=== PATIENT | female | born 1935 | race Caucasian/White ===

== ENCOUNTER 2016-09-05 11:06 | Inpatient (IN) ==
[2016-09-05] MEDS ORDERED: SODIUM CHLORIDE 0.9% 500 ML IV STA (11:52)
--- NOTE | 2016-09-05 11:56 | EKG Report ---
Stationary ECG Study [facility] Test Date: 09/05/2016 11:40:44 AM Pat Name: PRIYA MAE Department: Room: Gender: F Signaler: BAKARI Howell : 1935 Requested by: Manuelito Wade Order Number: [id number] Reading MD: BIENVENIDO PETER Intervals [place] Rate: 61 P: 93 [place]: 162 QRS: 60 QRSD: 76 T: 71 QT: 421 QTc: 424 Interpretive Statements SINUS RHYTHM WITH OCCASIONAL SUPRAVENTRICULAR PREMATURE COMPLEXES Electronically Signed On 09-08-16 13:46:05 CDT by BIENVENIDO PETER [email or web address]
--- NOTE | 2016-09-05 12:08 | Emergency Department Note ---
Teressa Flores Brittany, am scribing for, and in the presence of, Manuelito Drake MD 12:01. Noelle Flores Charles R, MD, personally performed the services described in this documentation, ascribed by Cecille Gannon in my presence, and it is both accurate and complete . Arrival - Arrival Chief Complaint: Arrhythmia/Palpitations Stated Complaint: DIZZINESS, WEAKNESS ED Nursing Triage Note: PT WITH ONSET OF WEAKNESS THIS AM AND COMPLAINS OF HEART FELT LIKE IT WAS RACING, DENIES CP,SOB PT ACTUALLY HAVING PERIODS OF BRADYCARDIA IN TRIAGE. HR Mode of Arrival: Wheelchair Limitations: No Limitations Source: Family Time Seen by Provider: 09/05/16 11:38 - History of Present Illness HPI Narrative: This is a 81 y/o white female, who presents to the ED with c/o dizziness which started earlier this morning. Her son reports while at home, pt started to experience dizziness. He staets he checked her BP cuffs and it was around 178/ 90. He states her pulse was 60-64. SHe has a PMHx of vertigo but it has been "years since she has had an episode". Her son reports when she stood up it made the dizziness worse. Pt denies any diarrhea, N/V or CP. Her son states, per pt, "It feels like my heart is getting away with me". Pt has no other complaints/ pain in the ED at this time. Pt has a PMHx of HTN and dementia. Pt denies a surgical Hx. Pt denies a family medical Hx. Pt denies a social Hx. Onset (ago): hour(s) (Started earlier this morning) Consistency: constant Severity: moderate Allergies/Adverse Reactions: Allergies Allergy/AdvReac Type Severity Reaction Status Date / Time furosemide [From Lasix] Allergy RASH Verified 09/05/16 11:31 Home Medications: Home Medications Medication Instructions Recorded Confirmed Type Cholecalciferol [Vitamin D3] 1,000 unit PO 0900 04/01/16 09/05/16 History Nebivolol [Bystolic] 10 mg PO 0900 04/01/16 09/05/16 History hydrALAZINE TAB [Apresoline Tab] 100 mg PO BID 04/01/16 09/05/16 History hydroCHLOROthiazide 25 mg PO 0900 04/01/16 09/05/16 History [Hydrochlorothiazide] Donepezil [Aricept] 5 mg PO BEDTIME #30 tablet 04/08/16 09/05/16 Rx Gabapentin Cap/Tab [Neurontin 100 mg PO BID@1600,2100 #60 capsule 04/08/1609/05 Rx Cap/Tab] Memantine [Namenda] 5 mg PO BID #60 tablet 04/08/16 09/05/16 Rx Review of System - Review of System 12 point system: reviewed and no additional remarkable complaints except as stated - Review of System Cardiovascular: Present: other (Tachycardia). Absent: chest pain, palpitations Gastrointestinal: Absent: nausea, vomiting, diarrhea Neurological: Present: vertigo (Dizziness) Medical,Surgical,& Family Hx - Medical History Cardio: History of: Hypertension Psychological: No history of: Behavior Problems, Violent Behavior, Psychiatric Problems Neurology: History of: Dementia HEENT: History of: Eye Problem (Macular degernation) - Social History Smoking Status: Never smoker Exam Vital Signs: Vital Signs Temperature 98.3 F 09/05/16 11:22 Pulse Rate 63 09/05/16 13:20 Respiratory Rate 16 09/05/16 13:20 Blood Pressure 170/52 09/05/16 13:20 O2 Sat by Pulse Oximetry 99 09/05/16 13:20 - General General appearance: alert, in no apparent distress - Head Head exam: Present: atraumatic, normocephalic, normal inspection - Eye Eye exam: Present: nystagmus (Nystagmus to the left when sitting up ). Absent: miosis, mydriasis - ENT ENT exam: Present: normal exam, normal oropharynx, mucous membranes moist, TM's normal bilaterally, normal external ear exam - Neck Neck exam: Present: normal inspection, full ROM, trachea midline. Absent: tenderness, meningismus, lymphadenopathy, thyromegaly - Chest Chest inspection: Present: normal inspection, symmetric chest wall rise. Absent : tenderness, rash, abscess - Respiratory Respiratory exam: Present: normal lung sounds bilaterally. Absent: rales, respiratory distress, rhonchi, stridor, wheezes - Cardiovascular Cardiovascular exam: Present: normal rhythm, bradycardia (Bradycardia with a few extrasystole), normal heart sounds. Absent: murmur, rubs, gallop, clicks, JVD - Abdominal Exam Abdominal exam: Present: soft, normal bowel sounds. Absent: distention, tenderness, guarding, rebound, rigidity - Rectal Exam Rectal exam: Present: deferred - Extremities Exam Extremities exam: Present: normal inspection, full ROM, normal capillary refill. Absent: tenderness, pedal edema, joint swelling, calf tenderness - Back Exam Back exam: Present: normal inspection, full ROM. Absent: tenderness, muscle spasm, rashes - Neurological Exam Neurological exam: Present: alert, oriented X3, CN II-XII intact, reflexes normal. Absent: motor sensory deficit - Psychiatric Psychiatric exam: Present: normal affect, normal mood. Absent: depressed, agitated, anxious, flat affect, manic - Skin Skin exam: Present: warm, dry, intact, normal color. Absent: rash, cyanosis, diaphoresis Course Course Narrative: Patient has had a history of some neurocognitive behavior problems in the past was admitted to [facility] in 2016. Patient does not appear to be acute distress but still has been symptomatic with dizziness and unsteady gait with a normal workup - Reevaluation(s) Reevaluation #1: Patient still having symptoms of dizziness. Despite getting fluid to have a negative workup patient also have some memory loss issues. Will place patient in the hospital for observation Time: 13:36 - Consultations Consultation #1: Hospitalist will admit patient Time: 13:36 Results - Labs CBC & BMP: 09/05/16 11:50 09/05/16 11:50 Lab Results: I have reviewed the patients labs Labs: Laboratory Tests 09/05/16 09/05/16 09/05/16 11:50 11:50 11:50 WBC 5.7 RBC 3.84 Hgb 11.9 L Hct 34.1 L MCV 88.8 MCH 31 MCHC 34.9 RDW 13.6 Plt Count 125 L MPV 10.1 Neut % (Auto) 76.7 H Lymph % (Auto) 14.0 L [place] % (Auto) 7.6 Eos % (Auto) 0.5 Baso % (Auto) 0.7 Neut # (Auto) 4.3 Lymph # (Auto) 0.8 L [place] # (Auto) 0.4 Eos # (Auto) 0.0 Baso # (Auto) 0.0 Immature Gran % 0.5 Nucleated RBC % 0.0 Immature Gran # 0.03 Nucleated RBCs # 0.00 INR 1.0 PT Patient/Control Mix 10.6 Sodium 132 L Potassium 3.9 Chloride 95 L Carbon Dioxide 30 Anion Gap 10.9 BUN 14 Creatinine 1.30 H GFR Calculation 39 BUN/Creatinine Ratio 10.00 Glucose 93 Calculated Osmolality 264.5 L Calcium 8.9 Magnesium 1.7 L Total Bilirubin 0.40 AST 24 ALT 14 Alkaline Phosphatase 75 Troponin I < 0.015 B-Natriuretic Peptide Total Protein 6.4 Albumin 3.5 Globulin 2.9 Albumin/Globulin Ratio 1.2 Free T4 1.16 TSH 3rd Generation 2.140 Urine Color Urine Appearance Urine pH Ur Specific [place] Urine Protein Urine Glucose (UA) Urine Ketones Urine Blood Urine Nitrate Urine Bilirubin Urine Urobilinogen Urine Leukocytes Urine RBC Urine WBC Ur Culture Indicated? 09/05/16 09/05/16 11:50 12:27 WBC RBC Hgb Hct MCV MCH MCHC RDW Plt Count MPV Neut % (Auto) Lymph % (Auto) [place] % (Auto) Eos % (Auto) Baso % (Auto) Neut # (Auto) Lymph # (Auto) [place] # (Auto) Eos # (Auto) Baso # (Auto) Immature Gran % Nucleated RBC % Immature Gran # Nucleated RBCs # INR PT Patient/Control Mix Sodium Potassium Chloride Carbon Dioxide Anion Gap BUN Creatinine GFR Calculation BUN/Creatinine Ratio Glucose Calculated Osmolality Calcium Magnesium Total Bilirubin AST ALT Alkaline Phosphatase Troponin I B-Natriuretic Peptide 91 Total Protein Albumin Globulin Albumin/Globulin Ratio Free T4 TSH 3rd Generation Urine Color Straw Urine Appearance Clear Urine pH 7.0 Ur Specific [place] 1.004 Urine Protein Negative Urine Glucose (UA) Negative Urine Ketones Negative Urine Blood Negative Urine Nitrate Negative Urine Bilirubin Negative Urine Urobilinogen < 2.0 H Urine Leukocytes Negative Urine RBC <1 Urine WBC <1 Ur Culture Indicated? Not indicated - Diagnostic Findings Procedure: Chest x-ray: report reviewed by me (Nothing Acute.), CT: report reviewed by me (Head CT: Nothing acute.) Disposition Clinical Impression: Palpitations, Neurocognitive disorder, Generalized weakness, Dizziness Case discussed with: patient, patient's family Disposition: Still a Patient Condition: Stable Time of Disposition: 13:38 NIH Stroke Score - Stroke Score Initial Assessment Level of Consciousness: Alert Level of Consciousness Questions: Answers Both Correctly Level of Consciousness Commands: Obeys Both Correctly Best Gaze: Normal Visual Gabriel: No Visual Loss Facial Palsy: Normal Motor - Right Arm: No Drift Motor - Left Arm: No Drift Motor - Right Leg: No Drift Motor - Left Leg: No Drift Limb Ataxia: Absent Sensory (Pin Prick): Normal Best Language: Normal Dysarthria: Normal Extinction / Inattention (Neglect): No Neglect NIH Stroke Score: 0
[2016-09-05 12:13] LABS: Basophils % 0.7 % (0.0-0.8); Eosinophils % 0.5 % (0.00-10.9); Hematocrit 34.1 VOL% (35.7-47.0); Hemoglobin 11.9 GM/DL (12.0-16.0); Immature Granulocytes % 0.5 %; Immature Granulocytes Absolute 0.03 #; Lymphocytes # 0.8 10*3/uL (1.4-4.0); Mean Corpuscular HGB Conc 34.9 GM/DL (32-36); Mean Corpuscular Hemoglobin 31 PG (27-34); Mean Corpuscular Volume 88.8 FL (87-102); Mean Platelet Volume 10.1 FL (9.6-12.0); Monocytes # 0.4 10*3/uL (0.11-0.8); Monocytes % 7.6 % (1.7-12.7); Neutrophils # 4.3 10*3/uL (1.4-7.4); Neutrophils % 76.7 % (38.7-73.9); Platelet Count 125 T/CUMM (130-400); Red Blood Count 3.84 MC/CUMM (3.8-5.5); Red Cell Distribution Width 13.6 % (9.3-17.3); White Blood Count 5.7 T/CUMM (4-12)
--- NOTE | 2016-09-05 12:16 | CT Report ---
CT head/brain wo con Indication: Dizziness Comparison: Head CT 04/01/2016. Technique: CT of the brain was performed without administration of intravenous contrast. The CT examination was performed using one or more of the following dose reduction techniques: Automatic exposure control, adjustment of the mA and kV according to patient size, use of acute or iterative reconstruction techniques. Findings: There is no evidence of acute intracranial mass, hemorrhage, or infarction. Generalized cerebral atrophy is present. Areas of decreased attenuation within the periventricular white matter and cerebral white matter are present which could be compatible with microvascular ischemia. The basal cisterns are patent. No significant abnormality is demonstrated to involve the posterior fossa or cerebellum. Orbits and globes demonstrate no evidence of significant pathology. The paranasal sinuses are clear. No significant abnormality is demonstrated to involve the mastoid air cells. The calvarium and overlying soft tissues demonstrate no evidence of acute pathology. Impression: 1. No CT evidence of acute intracranial pathology. 09/05/2016 12:12 PM PROCEDURE INTERPRETED AT [facility] DEPARTMENT OF RADIOLOGY Final Report Signed by: Dr. Ariel Jung
[2016-09-05 12:27] LABS: PT Patient Result 10.6 SECS
[2016-09-05 12:38] LABS: Apearance,Urine CLEAR (Clear); Bilirubin,Urine Negative (Negative); Blood, Urine Negative (Negative); Glucose,Urine (UA) Negative (Negative); Ketones,Urine Negative (Negative); Nitrite,Urine Negative (Negative); Protein,Urine Negative; RBC,Urine <1 /HPF (0-4); Urine Color Straw (Yellow); Urine Specific Gravity 1.004 (1.001-1.035); Urine Urobilinogen < 2.0 EU/DL (0.2-1.0); WBC,Urine <1 /HPF (0-6)
--- NOTE | 2016-09-05 12:40 | XRay Report ---
History: Shortness of breath Date: 09/05/2016 Study: Chest x-ray PA portable Comparison exam: April 01, 2016 chest x-ray The cardiac silhouette is upper normal in size. There is no mediastinal mass. The pulmonary vasculature is not engorged. There is no pleural effusion. The lungs are well-expanded and generally clear. There is mild thoracic spondylosis. Impression: No acute cardiopulmonary process compared to the previous study PROCEDURE INTERPRETED AT [facility] DEPARTMENT OF RADIOLOGY Final Report Signed by: Dr. Yelena Bejarano
[2016-09-05 12:47] LABS: Alanine Aminotransferase 14 U/L (13-56); Albumin 3.5 G/DL (3.4-5.0); Alkaline Phosphatase 75 U/L (45-117); Aspartate Amino Transferase 24 U/L (0-37); Blood Urea Nitrogen 14 MG/DL (7-18); Calcium 8.9 MG/DL (8.5-10.1); Free T4 (Free Thyroxine) 1.16 NG/DL (0.76-1.46); Glucose 93 MG/DL (74-106); Magnesium 1.7 MG/DL (1.8-2.4); Osmolality,Calculated 264.5 MOS/KG (273-304); Potassium 3.9 MMOL/L (3.5-5.1); Sodium 132 MMOL/L (136-145); Total Protein 6.4 G/DL (6.4-8.3); Troponin I Only < 0.015 NG/ML (0.00-0.045)
[2016-09-05] MEDS ORDERED: MAGNESIUM SULF RIDER 2 GM in PREMIX 1 EACH IV STA (12:56)
[2016-09-05] MEDS ORDERED: MAGNESIUM SULF RIDER 50 ML IV ONE (13:30)
[2016-09-05] MEDS ORDERED: ENOXAPARIN 40 MG/0.4 ML SYRINGE SUBCUT SCH (14:23)
[2016-09-05] MEDS ORDERED: ONDANSETRON 4 MG/2 ML VIAL IV PRN (14:23)
[2016-09-05] MEDS ORDERED: ACETAMINOPHEN 325 MG TABLET PO PRN (14:23)
--- NOTE | 2016-09-05 15:05 | Hospitalist History & Physical ---
Assessment and Plan (1) Dizziness Status: Acute Assessment and plan: Admit to telemetry for observation. Cardiac monitoring. Orthostatic blood pressures. IV fluid hydration. Hold medication for now. Current Visit: Yes (2) Generalized weakness Status: Acute Assessment and plan: PT OT consult. Fall precautions. Current Visit: Yes (3) Neurocognitive disorder Status: Chronic Current Visit: Yes (4) Palpitations Status: Acute Current Visit: Yes History of Present Illness Chief complaint: Dizziness History of present illness: Ms. Katz is a 81 year old white female with a history of hypertension, vertigo , and dementia presented to the ED today with complaints of generalized weakness and dizziness. Patient was accompanied by son who is an SHEET [employer]OCK[employer] and he provides some of her history. Patient states that he normally checks on mother every morning and that this morning when he saw her she was fine. He took her to an appointment that she had this morning, but was called back after receiving word that she'd become dizzy. Patient states that she went to stand up and became dizzy. Patient also reports that she felt as though her heart was getting away from her. Patient's son states that her blood pressure this morning was 170s over 90s and that her pulse rate was in the 60s. Patient denies any other complaints at this time. She denies nausea, vomiting, chest pain, shortness of breath, ringing in the ears, or loss of vision. The patient has been admitted to the telemetry unit for further observation and care. Home Medications Medication Instructions Recorded Confirmed Type Cholecalciferol [Vitamin D3] 1,000 unit PO 0900 04/01/16 09/05/16 History Nebivolol [Bystolic] 10 mg PO 0900 04/01/16 09/05/16 History hydrALAZINE TAB [Apresoline Tab] 100 mg PO BID 04/01/16 09/05/16 History hydroCHLOROthiazide 25 mg PO 0900 04/01/16 09/05/16 History [Hydrochlorothiazide] Donepezil [Aricept] 5 mg PO BEDTIME #30 tablet 04/08/16 09/05/16 Rx Gabapentin Cap/Tab [Neurontin 100 mg PO BID@1600,2100 #60 capsule 04/08/1609/05 Rx Cap/Tab] Memantine [Namenda] 5 mg PO BID #60 tablet 04/08/16 09/05/16 Rx Allergies Allergy/AdvReac Type Severity Reaction Status Date / Time furosemide [From Lasix] Allergy RASH Verified 09/05/16 11:31 Medical,Surgical,& Family Hx - Medical History Cardio: History of: Hypertension Psychological: No history of: Behavior Problems, Violent Behavior, Psychiatric Problems Neurology: History of: Dementia, TIA No history of: Seizures 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 Absent: chills, fever(s) - EENT Eyes: Present: loss of vision, requires corrective lense Ears: Present: decreased hearing. Absent: ear discharge Nose, mouth and throat: Absent: dysphagia, headache(s) - Cardiovascular Cardiovascular: Present: lightheadedness. Absent: chest pain at rest, chest pain with activity, dyspnea on exertion, edema - Respiratory Respiratory: Absent: cough, dyspnea - Gastrointestinal Gastrointestinal: Absent: abdominal pain, nausea, vomiting - Genitourinary Genitourinary: Absent: difficulty urinating, urinary frequency - Neurological Neurological: Present: confusion, dizziness. Absent: frequent falls, headache(s ) - Psychiatric Psychiatric: Present: confusion. Absent: anxiety Exam - Constitutional Vitals: Period Temp Pulse Resp BP Sys/Jackson Pulse Ox Last 24 Hr 97.4 F-98.3 F 52-70 16-20 132-213/52-105 96-100 General appearance: normal weight, no acute distress - Head Head exam: Present: normal inspection, normocephalic - Eye Eye exam: Present: EOMI. Absent: periorbital swelling Pupils: Present: OZZY. Absent: dilated - ENT ENT exam: Present: normal exam - Neck Neck exam: Present: normal inspection. Absent: thyromegaly - Respiratory Respiratory exam: Present: clear to auscultation bilaterally. Absent: wheezes - Cardiovascular Cardiovascular exam: Present: bradycardia. Absent: tachycardia - GI/Abdominal GI/Abdominal exam: Present: normal bowel sounds, soft. Absent: tenderness - Extremities Exam Extremities exam: Present: normal capillary refill, full ROM. Absent: edema - Neurological Exam Neurological exam: Present: alert, oriented X3, normal gait - Psychiatric Psychiatric exam: Present: normal affect, normal mood - Skin Skin exam: Present: normal color, warm, dry Results - Labs CBC & BMP: 09/05/16 11:50 09/05/16 11:50 Lab Results: I have reviewed the past 24 hour labs Quality Measures - Stroke Symptom Onset Unknown: No
[2016-09-05] MEDS ORDERED: hydrALAZINE 20 MG/1 ML VIAL IV ONE (15:09)
[2016-09-05] MEDS: SODIUM CHLORIDE 0.9% 1,000 ML IV SCH (15:47)
[2016-09-05] MEDS ORDERED: NIFEdipine 10 MG CAPSULE PO PRN (15:55)
[2016-09-05] MEDS: GABAPENTIN 100 MG CAPSULE PO SCH ×2 (17:22→21:05)
[2016-09-05] MEDS ORDERED: DONEPEZIL 5 MG TABLET PO SCH (21:00)
[2016-09-05] MEDS: MEMANTINE 5 MG TABLET PO SCH (21:05)
[2016-09-06] MEDS: SODIUM CHLORIDE 0.9% 1,000 ML IV SCH (03:00)
[2016-09-06 06:41] LABS: Basophils % 0.7 % (0.0-0.8); Eosinophils # 0.1 10*3/uL (0.0-0.87); Eosinophils % 1.2 % (0.00-10.9); Hemoglobin 10.2 GM/DL (12.0-16.0); Immature Granulocytes % 0.7 %; Immature Granulocytes Absolute 0.03 #; Lymphocytes # 1.2 10*3/uL (1.4-4.0); Lymphocytes % 29.5 % (21.3-54.2); Mean Corpuscular HGB Conc 35.2 GM/DL (32-36); Mean Corpuscular Hemoglobin 31 PG (27-34); Mean Corpuscular Volume 88.7 FL (87-102); Mean Platelet Volume 10.1 FL (9.6-12.0); Monocytes # 0.3 10*3/uL (0.11-0.8); Monocytes % 7.9 % (1.7-12.7); Neutrophils # 2.4 10*3/uL (1.4-7.4); Red Blood Count 3.27 MC/CUMM (3.8-5.5); Red Cell Distribution Width 13.8 % (9.3-17.3); White Blood Count 4.1 T/CUMM (4-12)
[2016-09-06 06:42] LABS: Platelet Count 107 T/CUMM (130-400)
[2016-09-06 07:15] LABS: Calcium 7.9 MG/DL (8.5-10.1); Magnesium 1.6 MG/DL (1.8-2.4); Osmolality,Calculated 273.7 MOS/KG (273-304); Potassium 3.7 MMOL/L (3.5-5.1); Troponin I Only 0.018 NG/ML (0.00-0.045)
--- NOTE | 2016-09-06 07:47 | EKG Report ---
Stationary ECG Study [facility] Test Date: 09/06/2016 7:45:58 AM Pat Name: PRIYA MAE Department: Room: 289 Gender: F Tooling Engineering Tech: : 1935 Requested by: Mateo Liz Order Number: [id number] Reading MD: TOÑO BAILEY Intervals [place] Rate: 62 P: 0 [place]: 163 QRS: 60 QRSD: 72 T: 57 QT: 407 QTc: 412 Interpretive Statements SINUS RHYTHM WITH OCCASIONAL ECTOPIC PREMATURE COMPLEXES Electronically Signed On 09-09-16 12:47:29 CDT by TOÑO BAILEY [id number]
[2016-09-06 08:19] VITALS: BP 153/70
--- NOTE | 2016-09-06 08:32 | Discharge Summary ---
Hospital Course - Hospital Course Hospital Course: The patient was admitted to the hospital with dizziness and altered mental status. The patient has baseline dementia. The patient's family noticed a change from her usual personality and the patient was incapacitated with dizziness. The patient has some premature atrial contractions seen on her EKG. The patient's cardiac rhythm was monitored but did not change. There was no evidence of myocardial infarction by EKG or enzymes. There was no evidence of congestive heart failure. The patient's sedatives were held initially and then her home medications were restarted without ill effect. The patient had physical therapy evaluation and Chun maneuver improved her sensation of vertigo. The physical therapist recommended outpatient therapy to continue exercises intended to reduce vertigo. The patient is now ready for discharge home. On the date of discharge, the chest is clear and abdomen soft. [id number] and time required for documentation were 32 minutes. - Time spent with patient Time with patient DS: Greater than 30 minutes Diagnosis - Discharge Diagnosis (1) Vertigo Status: Resolved (2) Generalized weakness Status: Chronic (3) Dementia with behavioral disturbance Status: Chronic Discharge Plan - Discharge Medications No Action hydroCHLOROthiazide [Hydrochlorothiazide] 25 mg PO 0900 Nebivolol [Bystolic] 10 mg PO 0900 Cholecalciferol [Vitamin D3] 1,000 unit PO 0900 hydrALAZINE TAB [Apresoline Tab] 100 mg PO BID Donepezil [Aricept] 5 mg PO BEDTIME #30 tablet Gabapentin Cap/Tab [Neurontin Cap/Tab] 100 mg PO BID@1600,2100 #60 capsule Memantine [Namenda] 5 mg PO BID #60 tablet - Follow Up or Referral - Forms/Instructions Exam - Constitutional Vitals: Period Temp Pulse Resp BP Sys/Jackson Pulse Ox Last 24 Hr 97.4 F-98.6 F 52-73 12-20 132-213/52-105 96-100 Discharge Results Procedures and tests throughout hospitalization: Pending Orders 09/05/16 12:37 Blood Culture Stat Labs on day of discharge: Labs from last 24 hours 09/06/16 09/06/16 09/06/16 06:11 06:11 06:11 WBC 4.1 RBC 3.27 L Hgb 10.2 L Hct 29.0 L MCV 88.7 MCH 31 MCHC 35.2 RDW 13.8 Plt Count 107 L MPV 10.1 Neut % (Auto) 60.0 Lymph % (Auto) 29.5 [place] % (Auto) 7.9 Eos % (Auto) 1.2 Baso % (Auto) 0.7 Neut # (Auto) 2.4 Lymph # (Auto) 1.2 L [place] # (Auto) 0.3 Eos # (Auto) 0.1 Baso # (Auto) 0.0 Immature Gran % 0.7 Nucleated RBC % 0.0 Immature Gran # 0.03 Nucleated RBCs # 0.00 INR PT Patient/Control Mix Sodium 138 Potassium 3.7 Chloride 103 Carbon Dioxide 26 Anion Gap 12.7 BUN 13 Creatinine 1.00 GFR Calculation 53 BUN/Creatinine Ratio 13.00 Glucose 85 Calculated Osmolality 273.7 Calcium 7.9 L Magnesium 1.6 L Total Bilirubin AST ALT Alkaline Phosphatase Total Creatine Kinase 43 Troponin I 0.018 B-Natriuretic Peptide Total Protein Albumin Globulin Albumin/Globulin Ratio Free T4 TSH 3rd Generation 2.890 Urine Color Urine Appearance Urine pH Ur Specific [place] Urine Protein Urine Glucose (UA) Urine Ketones Urine Blood Urine Nitrate Urine Bilirubin Urine Urobilinogen Urine Leukocytes Urine RBC Urine WBC Ur Culture Indicated? 09/05/16 09/05/16 09/05/16 12:27 11:50 11:50 WBC RBC Hgb Hct MCV MCH MCHC RDW Plt Count MPV Neut % (Auto) Lymph % (Auto) [place] % (Auto) Eos % (Auto) Baso % (Auto) Neut # (Auto) Lymph # (Auto) [place] # (Auto) Eos # (Auto) Baso # (Auto) Immature Gran % Nucleated RBC % Immature Gran # Nucleated RBCs # INR PT Patient/Control Mix Sodium 132 L Potassium 3.9 Chloride 95 L Carbon Dioxide 30 Anion Gap 10.9 BUN 14 Creatinine 1.30 H GFR Calculation 39 BUN/Creatinine Ratio 10.00 Glucose 93 Calculated Osmolality 264.5 L Calcium 8.9 Magnesium 1.7 L Total Bilirubin 0.40 AST 24 ALT 14 Alkaline Phosphatase 75 Total Creatine Kinase Troponin I < 0.015 B-Natriuretic Peptide 91 Total Protein 6.4 Albumin 3.5 Globulin 2.9 Albumin/Globulin Ratio 1.2 Free T4 1.16 TSH 3rd Generation 2.140 Urine Color Straw Urine Appearance Clear Urine pH 7.0 Ur Specific [place] 1.004 Urine Protein Negative Urine Glucose (UA) Negative Urine Ketones Negative Urine Blood Negative Urine Nitrate Negative Urine Bilirubin Negative Urine Urobilinogen < 2.0 H Urine Leukocytes Negative Urine RBC <1 Urine WBC <1 Ur Culture Indicated? Not indicated 09/05/16 09/05/16 11:50 11:50 WBC 5.7 RBC 3.84 Hgb 11.9 L Hct 34.1 L MCV 88.8 MCH 31 MCHC 34.9 RDW 13.6 Plt Count 125 L MPV 10.1 Neut % (Auto) 76.7 H Lymph % (Auto) 14.0 L [place] % (Auto) 7.6 Eos % (Auto) 0.5 Baso % (Auto) 0.7 Neut # (Auto) 4.3 Lymph # (Auto) 0.8 L [place] # (Auto) 0.4 Eos # (Auto) 0.0 Baso # (Auto) 0.0 Immature Gran % 0.5 Nucleated RBC % 0.0 Immature Gran # 0.03 Nucleated RBCs # 0.00 INR 1.0 PT Patient/Control Mix 10.6 Sodium Potassium Chloride Carbon Dioxide Anion Gap BUN Creatinine GFR Calculation BUN/Creatinine Ratio Glucose Calculated Osmolality Calcium Magnesium Total Bilirubin AST ALT Alkaline Phosphatase Total Creatine Kinase Troponin I B-Natriuretic Peptide Total Protein Albumin Globulin Albumin/Globulin Ratio Free T4 TSH 3rd Generation Urine Color Urine Appearance Urine pH Ur Specific [place] Urine Protein Urine Glucose (UA) Urine Ketones Urine Blood Urine Nitrate Urine Bilirubin Urine Urobilinogen Urine Leukocytes Urine RBC Urine WBC Ur Culture Indicated? DS: Provider Date of admission: 09/05/16 13:57 Primary care physician: . No PCP Attending physician on admission: Mateo Liz MD Consults: 09/05/16 14:23 Consult to Physical Therapy [CONS] Routine Reason for Physical Therapy: Weakness Discharging clinician: Mateo Liz MD
--- NOTE | 2016-09-06 08:36 | Discharge Summary ---
Hospital Course - Hospital Course Hospital Course: The patient was admitted to the hospital with dizziness and altered mental status. The patient has baseline dementia. The patient's family noticed a change from her usual personality and the patient was incapacitated with dizziness. The patient has some premature atrial contractions seen on her EKG. The patient's cardiac rhythm was monitored but did not change. There was no evidence of myocardial infarction by EKG or enzymes. There was no evidence of congestive heart failure. The patient's sedatives were held initially and then her home medications were restarted without ill effect. The patient had physical therapy evaluation and Chun maneuver improved her sensation of vertigo. The physical therapist recommended outpatient therapy to continue exercises intended to reduce vertigo. The patient is now ready for discharge home. On the date of discharge, the chest is clear and abdomen soft. [id number] and time required for documentation were 32 minutes. - Time spent with patient Time with patient DS: Greater than 30 minutes Diagnosis - Discharge Diagnosis (1) Vertigo Status: Resolved (2) Generalized weakness Status: Chronic (3) Dementia with behavioral disturbance Status: Chronic Discharge Plan - Discharge Data Disposition: Disch To Home/Self Care Condition at Discharge: Stable Discharge Diet: heart healthy Activity: resume usual activities as tolerated - Discharge Medications Continue hydroCHLOROthiazide [Hydrochlorothiazide] 25 mg PO 0900 Nebivolol [Bystolic] 10 mg PO 0900 Cholecalciferol [Vitamin D3] 1,000 unit PO 0900 hydrALAZINE TAB [Apresoline Tab] 100 mg PO BID Donepezil [Aricept] 5 mg PO BEDTIME #30 tablet Gabapentin Cap/Tab [Neurontin Cap/Tab] 100 mg PO BID@1600,2100 #60 capsule Memantine [Namenda] 5 mg PO BID #60 tablet - Follow Up or Referral Follow Up: Physical,Therapy [Other] - Forms/Instructions Exam - Constitutional Vitals: Period Temp Pulse Resp BP Sys/Jackson Pulse Ox Last 24 Hr 97.4 F-98.6 F 52-73 12-20 132-213/52-105 96-100 Discharge Results Procedures and tests throughout hospitalization: Pending Orders 09/05/16 12:37 Blood Culture Stat Labs on day of discharge: Labs from last 24 hours 09/06/16 09/06/16 09/06/16 06:11 06:11 06:11 WBC 4.1 RBC 3.27 L Hgb 10.2 L Hct 29.0 L MCV 88.7 MCH 31 MCHC 35.2 RDW 13.8 Plt Count 107 L MPV 10.1 Neut % (Auto) 60.0 Lymph % (Auto) 29.5 [place] % (Auto) 7.9 Eos % (Auto) 1.2 Baso % (Auto) 0.7 Neut # (Auto) 2.4 Lymph # (Auto) 1.2 L [place] # (Auto) 0.3 Eos # (Auto) 0.1 Baso # (Auto) 0.0 Immature Gran % 0.7 Nucleated RBC % 0.0 Immature Gran # 0.03 Nucleated RBCs # 0.00 INR PT Patient/Control Mix Sodium 138 Potassium 3.7 Chloride 103 Carbon Dioxide 26 Anion Gap 12.7 BUN 13 Creatinine 1.00 GFR Calculation 53 BUN/Creatinine Ratio 13.00 Glucose 85 Calculated Osmolality 273.7 Calcium 7.9 L Magnesium 1.6 L Total Bilirubin AST ALT Alkaline Phosphatase Total Creatine Kinase 43 Troponin I 0.018 B-Natriuretic Peptide Total Protein Albumin Globulin Albumin/Globulin Ratio Free T4 TSH 3rd Generation 2.890 Urine Color Urine Appearance Urine pH Ur Specific [place] Urine Protein Urine Glucose (UA) Urine Ketones Urine Blood Urine Nitrate Urine Bilirubin Urine Urobilinogen Urine Leukocytes Urine RBC Urine WBC Ur Culture Indicated? 09/05/16 09/05/16 09/05/16 12:27 11:50 11:50 WBC RBC Hgb Hct MCV MCH MCHC RDW Plt Count MPV Neut % (Auto) Lymph % (Auto) [place] % (Auto) Eos % (Auto) Baso % (Auto) Neut # (Auto) Lymph # (Auto) [place] # (Auto) Eos # (Auto) Baso # (Auto) Immature Gran % Nucleated RBC % Immature Gran # Nucleated RBCs # INR PT Patient/Control Mix Sodium 132 L Potassium 3.9 Chloride 95 L Carbon Dioxide 30 Anion Gap 10.9 BUN 14 Creatinine 1.30 H GFR Calculation 39 BUN/Creatinine Ratio 10.00 Glucose 93 Calculated Osmolality 264.5 L Calcium 8.9 Magnesium 1.7 L Total Bilirubin 0.40 AST 24 ALT 14 Alkaline Phosphatase 75 Total Creatine Kinase Troponin I < 0.015 B-Natriuretic Peptide 91 Total Protein 6.4 Albumin 3.5 Globulin 2.9 Albumin/Globulin Ratio 1.2 Free T4 1.16 TSH 3rd Generation 2.140 Urine Color Straw Urine Appearance Clear Urine pH 7.0 Ur Specific [place] 1.004 Urine Protein Negative Urine Glucose (UA) Negative Urine Ketones Negative Urine Blood Negative Urine Nitrate Negative Urine Bilirubin Negative Urine Urobilinogen < 2.0 H Urine Leukocytes Negative Urine RBC <1 Urine WBC <1 Ur Culture Indicated? Not indicated 09/05/16 09/05/16 11:50 11:50 WBC 5.7 RBC 3.84 Hgb 11.9 L Hct 34.1 L MCV 88.8 MCH 31 MCHC 34.9 RDW 13.6 Plt Count 125 L MPV 10.1 Neut % (Auto) 76.7 H Lymph % (Auto) 14.0 L [place] % (Auto) 7.6 Eos % (Auto) 0.5 Baso % (Auto) 0.7 Neut # (Auto) 4.3 Lymph # (Auto) 0.8 L [place] # (Auto) 0.4 Eos # (Auto) 0.0 Baso # (Auto) 0.0 Immature Gran % 0.5 Nucleated RBC % 0.0 Immature Gran # 0.03 Nucleated RBCs # 0.00 INR 1.0 PT Patient/Control Mix 10.6 Sodium Potassium Chloride Carbon Dioxide Anion Gap BUN Creatinine GFR Calculation BUN/Creatinine Ratio Glucose Calculated Osmolality Calcium Magnesium Total Bilirubin AST ALT Alkaline Phosphatase Total Creatine Kinase Troponin I B-Natriuretic Peptide Total Protein Albumin Globulin Albumin/Globulin Ratio Free T4 TSH 3rd Generation Urine Color Urine Appearance Urine pH Ur Specific [place] Urine Protein Urine Glucose (UA) Urine Ketones Urine Blood Urine Nitrate Urine Bilirubin Urine Urobilinogen Urine Leukocytes Urine RBC Urine WBC Ur Culture Indicated? DS: Provider Date of admission: 09/05/16 13:57 Primary care physician: . No PCP Attending physician on admission: Mateo Liz MD Consults: 09/05/16 14:23 Consult to Physical Therapy [CONS] Routine Reason for Physical Therapy: Weakness Discharging clinician: Mateo Liz MD
[2016-09-06] MEDS: MEMANTINE 5 MG TABLET PO SCH (08:59)
[2016-09-06] MEDS ORDERED: PANTOPRAZOLE 40 MG TABLET PO SCH (09:00)
[2016-09-06] MEDS ORDERED: hydroCHLOROthiazide 25 MG TABLET PO SCH (09:00)
[2016-09-06] MEDS ORDERED: NEBIVOLOL 10 MG TABLET PO SCH (09:00)
[2016-09-06] MEDS ORDERED: CHOLECALCIFEROL 1,000 UNIT TABLET PO SCH (09:00)
== END 2016-09-06 10:25 | disposition home or self-care (01) | DRG 149 ==
LOC: N.ED 11:06 → N.EDINP 13:57 → N.TELEN 14:15
PROVIDERS: ADMIT Internal Medicine; ATTEND Internal Medicine